=== PATIENT | female | born 2000 | race Two or more races ===

== ENCOUNTER 2023-03-20 18:06 | Emergency (ER) | payer SELFPAY ==
[~2023-03-20] VITALS: Ht 157.5 cm; Wt 55.3 kg
[2023-03-20 19:10] VITALS: BP 130/86; TEMP 98.3; O2SAT 99
== END 2023-03-20 19:10 | disposition home or self-care (01) ==
LOC: ER 18:17
DX: M54.50 Low back pain, unspecified (principal); M25.511 Pain in right shoulder; Z88.1 Allergy status to other antibiotic agents; V49.9XXA Car occupant (driver) (passenger) injured in unspecified traffic accident, initial encounter; Y93.89 Activity, other specified; Y92.89 Other specified places as the place of occurrence of the external cause; Y99.8 Other external cause status